=== PATIENT | male | born 1980 | race Caucasian/White ===

== ENCOUNTER 2020-10-24 13:31 | Emergency (ER) | payer OTHER ==
[~2020-10-24] VITALS: Ht 182.9 cm; Wt 94.3 kg
[~2020-10-24 13:31] MED LIST: CHILDREN'S325 MG/10. PO; FLUOCINONIDE15 G1 TOP; LEVAQUIN500 MG PO; PREDNISOLO15 MG/5 ML PO; TRIAMCINOLONE A15 G1 TOP
[2020-10-24] MEDS ORDERED: CASIRIVIMAB/IMDEVIMAB 10 ML in SODIUM CHLORIDE 0.9% 100 ML IV ONE (14:15)
[2020-10-24] MEDS ORDERED: ACETAMINOPHEN 325 MG TAB ONE (17:34)
== END 2020-10-24 16:09 | disposition home or self-care (01) ==
LOC: ER 14:31
DX: R05 Cough (principal); R43.8 Other disturbances of smell and taste; U07.1 COVID-19; R51.9 Headache, unspecified; F41.9 Anxiety disorder, unspecified
CPT/HCPCS: 99283